=== PATIENT | male | born 1985 | race Caucasian/White ===

== ENCOUNTER 2018-04-18 23:12 | Inpatient (IN) | payer BC ==
[2018-04-18] MEDS ORDERED: CEFTRIAXONE/SWI 1gm 1 GM/10 ML SYR ONE (23:27)
[2018-04-18] MEDS ORDERED: FENTANYL CITR 100 MCG/2 ML ONE (23:27)
[2018-04-18] MEDS ORDERED: TETANUS & DIPHTHERIA TOX,ADULT 0.5 ML VIAL ONE (23:27)
[2018-04-19] MEDS ORDERED: NA CHLORIDE 0.9% 1,000 ML ONE (00:57)
[2018-04-19 01:16] LABS: Absolute Lymphocytes (CBC) 2.1 K/uL (0.7-4.9); Absolute Monocytes 0.9 K/uL (0.1-1.3); Absolute Neutrophil 11.7 K/uL (1.8-8.0); Basophils % 0.4 % (0-1.3); Eosinophils % 0.8 % (0-4.4); Lymphocytes % 14.1 % (15.3-44.8); MCH 30.4 pg (27.0-35.0); MCV 88.3 fL (80-100); MPV 7.3 fL (7.6-11.3); Monocytes % 6.1 % (3.3-12.3); RBC Red Blood Cell Count 5.21 M/uL (4.33-5.43)
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
[2018-04-19 01:37] LABS: BUN Blood Urea Nitrogen 15 mg/dL (7-18); Bicarbonate 22 mmol/L (21-32); Glucose Level 113 mg/dL (74-106); Potassium 3.3 mmol/L (3.5-5.1); Sodium Level 136 mmol/L (136-145)
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
[2018-04-19] MEDS ORDERED: ACETAMINOPHEN 500 MG TAB PO PRN (02:19)
[2018-04-19] MEDS ORDERED: ONDANSETRON 4 MG/2 ML VIAL IV PRN (02:19)
[2018-04-19] MEDS ORDERED: NA CIT/CITRIC AC 30 ML ORAL UDC ONE (02:19)
[2018-04-19] MEDS ORDERED: MORPHINE 4 MG/ML SYR IV PRN (02:19)
[2018-04-19] MEDS ORDERED: MIDAZOLAM HCL 2 MG/2 ML INJ ONE (02:21)
[2018-04-19] MEDS ORDERED: KETAMINE HCL 500 MG/5 ML VIAL ONE (02:44)
[2018-04-19] MEDS ORDERED: PROPOFOL 200 MG/20 ML VIAL IV ONE (02:55)
[2018-04-19] MEDS ORDERED: Levofloxacin500mg IV 500 MG/100 ML BAG IV SCH (03:00)
[2018-04-19] MEDS ORDERED: Ringers Lactate 1,000 ML IV ONE (03:22)
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
[2018-04-19] MEDS: NA CHLORIDE 0.9% 1,000 ML IV SCH ×3 (05:47→21:37)
[2018-04-19] MEDS ORDERED: PIPER/TAZO/NS 3.375gm 3.375 GM/100 ML BAG IVPB SCH (06:00)
[2018-04-19] MEDS ORDERED: PIPER/TAZO/NS 3.375gm 3.375 GM/100 ML BAG ONE (06:16)
[2018-04-19] MEDS ORDERED: HYDROMORPHONE HCL 1 MG/ML INJ IV PRN (07:07)
[2018-04-19] MEDS: HYDROCODONE/APAP 10/325 TAB PO PRN ×2 (07:22→19:28)
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
[2018-04-19] MEDS: HOME MED 1 EA UNK (Dextroamphetamine/Amphetamine [Adderall 30 Mg Tablet] 30 MG) PO SCH (07:53)
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
[2018-04-19] MEDS: CETIRIZINE HCL 5 MG TABLET PO SCH (09:00)
[2018-04-19] MEDS ORDERED: HYDROMORPHONE HCL 2 MG/ML inj ONE (10:30)
--- NOTE | 2018-04-19 12:46 | P.PN ---
Subjective Date of Service: 04/19/18 Chief Complaint: gouging laceration medial left lower leg Subjective: Improving (doing well. c/o pain.) Review of Systems Unremarkable Physical Examination - Vital Signs Temperature: 97.1 F Blood Pressure: 133/72 Pulse: 80 Respirations: 16 Pulse Ox (%): 96 - Physical Exam General: Alert, Oriented x3 Respiratory: Clear to auscultation bilaterally Cardiovascular: No edema, Regular rate/rhythm Gastrointestinal: Normal bowel sounds, Soft and benign - Studies Laboratory Data (last 24 hrs) 04/19/18 00:45: Sodium 136, Potassium 3.3 L, BUN 15, Creatinine 0.80, Glucose 113 H 04/19/18 00:45: WBC 15.0 H, Hgb 15.8, Hct 46.0, Plt Count 198 Assessment & Plan - Problems (Diagnosis) (1) Laceration of left lower leg with foreign body Current Visit: Yes Status: Acute Plan: S/p ID change ot PO AB. Poss discharge am Add Bactrim Po.labs reviewed Qualifiers: Encounter type: initial encounter Qualified Code(s): S81.822A - Laceration with foreign body, left lower leg, initial encounter
[2018-04-19 13:22] LABS: Absolute Lymphocytes (CBC) 3.1 K/uL (0.7-4.9); Absolute Neutrophil 9.9 K/uL (1.8-8.0); Basophils % 0.4 % (0-1.3); Eosinophils % 1.7 % (0-4.4); Hematocrit 44.8 % (39.6-49.0); Lymphocytes % 21.8 % (15.3-44.8); MCH 30.2 pg (27.0-35.0); MCV 87.3 fL (80-100); MPV 7.4 fL (7.6-11.3); Monocytes % 7.2 % (3.3-12.3); RBC Red Blood Cell Count 5.14 M/uL (4.33-5.43)
[2018-04-19 13:45] LABS: ALT/SGPT 55 U/L (12-78); AST/SGOT 21 U/L (15-37); Albumin 3.8 g/dL (3.4-5.0); Alkaline Phosphatase 22 U/L (45-117); BUN Blood Urea Nitrogen 9 mg/dL (7-18); Bicarbonate 27 mmol/L (21-32); Bilirubin Total 0.8 mg/dL (0.2-1.0); Creatine Phosphokinase 118 U/L (39-308); Glucose Level 95 mg/dL (74-106); Potassium 3.8 mmol/L (3.5-5.1); Protein, Total 7.4 g/dL (6.4-8.2); Sodium Level 138 mmol/L (136-145)
[2018-04-19] MEDS: SMZ./TMP. 800/160 MG TABLET PO SCH ×2 (14:27→21:37)
[2018-04-19] MEDS: HYDROMORPHONE HCL 2 MG/ML inj IV PRN ×2 (14:28→22:53)
[2018-04-19] MEDS: PIPER/TAZO/NS 3.375gm 3.375 GM/100 ML BAG IVPB SCH ×2 (14:33→21:36)
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
[2018-04-20] MEDS: HYDROMORPHONE HCL 2 MG/ML inj IV PRN ×2 (04:34→08:49)
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
[2018-04-20 05:25] LABS: Absolute Lymphocytes (CBC) 2.6 K/uL (0.7-4.9); Absolute Neutrophil 7.1 K/uL (1.8-8.0); Basophils % 0.4 % (0-1.3); Eosinophils % 3.2 % (0-4.4); Lymphocytes % 23.7 % (15.3-44.8); MCV 87.1 fL (80-100); MPV 7.4 fL (7.6-11.3); Monocytes % 8.7 % (3.3-12.3); RBC Red Blood Cell Count 4.82 M/uL (4.33-5.43)
[2018-04-20] MEDS: PIPER/TAZO/NS 3.375gm 3.375 GM/100 ML BAG IVPB SCH (05:38)
[2018-04-20 05:43] LABS: ALT/SGPT 61 U/L (12-78); AST/SGOT 25 U/L (15-37); Albumin 3.7 g/dL (3.4-5.0); Alkaline Phosphatase 22 U/L (45-117); BUN Blood Urea Nitrogen 8 mg/dL (7-18); Bicarbonate 28 mmol/L (21-32); Bilirubin Total 0.5 mg/dL (0.2-1.0); Creatine Phosphokinase 108 U/L (39-308); Glucose Level 109 mg/dL (74-106); Potassium 4.3 mmol/L (3.5-5.1); Protein, Total 7.1 g/dL (6.4-8.2); Sodium Level 139 mmol/L (136-145)
[2018-04-20] MEDS: SMZ./TMP. 800/160 MG TABLET PO SCH (08:48)
[2018-04-20] MEDS: CETIRIZINE HCL 5 MG TABLET PO SCH (08:48)
[2018-04-20] MEDS: NA CHLORIDE 0.9% 1,000 ML IV SCH (09:00)
[2018-04-20] MEDS: HOME MED 1 EA UNK (Dextroamphetamine/Amphetamine [Adderall 30 Mg Tablet] 30 MG) PO SCH (09:00)
[2018-04-20] MEDS ORDERED: ENOXAPARIN 40 MG/0.4 ML SQ ONE (10:55)
--- NOTE | 2018-04-20 10:57 | P.PN ---
Subjective Date of Service: 04/20/18 Chief Complaint: gouging laceration medial left lower leg Patient's condition is the same is still requiring Dilaudid possible for another incision and drainage tomorrow Review of Systems General: Weakness Musculoskeletal: Leg Pain Physical Examination - Vital Signs Temperature: 97.4 F Blood Pressure: 123/68 Pulse: 80 Respirations: 18 Pulse Ox (%): 96 - Physical Exam General: Alert, Oriented x3 Respiratory: Clear to auscultation bilaterally Cardiovascular: No edema, Normal S1 S2 Assessment & Plan - Problems (Diagnosis) (1) Laceration of left lower leg with foreign body Current Visit: Yes Status: Acute Plan: Patient is scheduled for an incision and drainage tomorrow. He recently wanted to be transferred to [facility] patient was accepted morning he has decided to remain here in to have another incision and drainage done tomorrow continue with antibiotics still requiring significant amount of pain medication no cultures ordered Qualifiers: Encounter type: subsequent encounter Qualified Code(s): S81.822D - Laceration with foreign body, left lower leg, subsequent encounter
[2018-04-20] MEDS ORDERED: NA CHLORIDE 0.9% 1,000 ML IV SCH (11:00)
[2018-04-20] MEDS: HYDROCODONE/APAP 10/325 TAB PO PRN ×2 (11:18→13:10)
--- NOTE | 2018-04-20 12:19 | P.PN ---
Date of Service: 04/20/18 (POD#2) S: This patient was less alert yesterday than I thought and took away more misunderstanding. we went through the same discussion today, hopefully with better results. Quite reasonably, he and his would like to transfer care closer to home. Particularly, because a [id number] who is an anesthesiologist at [facility] recommended transfer to [facility] in [place]. O: afebrile, vital signs stable, patient still has sensation in his left foot to light touch throughout his foot. EHL TA, FHL and PT intact. Patient still describes pressure paresthesias "like a truck is parked on my ankle". Dorsiflexion of toes in the ankle is verified as is plantar flexion. The patient 's outer bandage was changed. A: This patient is doing reasonably well today. The plan was to take him back to surgery on Saturday for a second irrigation and debridement, but transfer has been approved. Discussed care to date with three [place] doctors last night. P: This patient and his expressed appreciation for care to date. Transfer by private vehicle planned for today. Room is reserved for their arrival at [facility] near their home in [place].
== END 2018-04-20 13:22 | disposition short-term general hospital (02) | DRG 908 ==
LOC: ER 23:12 → OR 04-19 02:12 → 2ND 04-19 03:19
PROVIDERS: ADMIT Hospitalist; ATTEND Internal Medicine Sleep Medicine
PROC: 0JDP0ZZ Extraction of Left Lower Leg Subcutaneous Tissue and Fascia, Open Approach (ICD-10-PCS; 2018-04-19)
PROC: 04B Lower Arteries, Excision (ICD-10-PCS; principal; 2018-04-19 02:30)
DX: S81.822A Laceration with foreign body, left lower leg, initial encounter (principal); S85.172A Laceration of posterior tibial artery, left leg, initial encounter; V86.55XA Driver of 3- or 4- wheeled all-terrain vehicle (ATV) injured in nontraffic accident, initial encounter; Y92.832 Beach as the place of occurrence of the external cause; F17.210 Nicotine dependence, cigarettes, uncomplicated; Z23 Encounter for immunization; F90.9 Attention-deficit hyperactivity disorder, unspecified type
CPT/HCPCS: 36415; 70450; 72125; 80048; 80053; 82550; 85025; 88304; 88305; 90714; 96361; 96365; 96375; 97163; 99285; J0696; J1170; J1650; J2250; J2543; J3010; J7030